=== PATIENT | male | born 1975 | race Caucasian/White ===

== ENCOUNTER 2018-03-15 14:09 | Emergency (ER) | payer OTHER ==
[~2018-03-15] VITALS: Ht 175.3 cm; Wt 72.6 kg
== END 2018-03-15 17:51 | disposition home or self-care (01) ==
LOC: ER 14:09
DX: S61.412A Laceration without foreign body of left hand, initial encounter (principal); W26.0XXA Contact with knife, initial encounter; Y93.89 Activity, other specified; Y92.098 Other place in other non-institutional residence as the place of occurrence of the external cause; Y99.8 Other external cause status